=== PATIENT | female | born 1970 | race African-American/Black ===

== ENCOUNTER → 2025-04-14 10:29 | Outpatient (REF) | payer OTHER, SELFPAY ==
[2025-04-15 15:06] LABS: Mumps Virus IgG Positive; Varicella Zoster IgG (VZV) Positive
== END ==
LOC: OHS 10:29
PROVIDERS: ATTENDING PHYSICIAN Nurse Practitioner Family
DX: Z23 Encounter for immunization (principal)
CPT/HCPCS: 36415; 86480; 86706; 86735; 86762; 86765; 86787

== ENCOUNTER → 2025-08-20 15:04 | Outpatient (REF) | payer OTHER, SELFPAY ==
[2025-08-20 16:24] LABS: HCG, Serum Qualitative Screen Negative
[2025-08-20 16:25] LABS: Hematocrit 40.9 % (37.0-47.0); Hemoglobin 13.0 g/dL (12.0-16.0); Mean Corp Hgb Conc. 31.8 g/dL (33.0-37.0); Mean Corpuscular Volume 70.5 fL (81.0-99.0); Platelet Count 269 10^3/uL (130-400); Red Cell Dist. Width 17.3 % (11.5-14.5)
[2025-08-20 16:29] LABS: ALT (SGPT) 19 U/L (0-35); AST (SGOT) 23 U/L (14-36); Albumin 4.1 g/dl (3.5-5.0); Alkaline Phosphatase 108 U/L (38-126); Blood Urea Nitrogen 11 mg/dl (7-17); Calcium 9.3 mg/dl (8.4-10.2); Carbon Dioxide 30 mmol/L (22-30); Chloride 102 mmol/L (98-107); Glucose 90 mg/dl (70-99); Potassium 4.3 mmol/L (3.5-5.1); Sodium 135 mmol/L (135-145); Total Protein 7.2 g/dl (6.3-8.2); eGFR > 60.00
[2025-08-20 16:57] LABS: Hepatitis B Surface Antigen Negative (Negative)
[2025-08-20 17:14] LABS: Hepatitis C Antibody Negative (Negative)
== END ==
LOC: REG 15:04
PROVIDERS: ATTENDING PHYSICIAN Nurse Practitioner Family
DX: Z57.8 Occupational exposure to other risk factors (principal)
CPT/HCPCS: 36415; 80053; 82248; 84100; 84703; 85027; 86706; 86803; 87340; 87389

== ENCOUNTER → 2025-09-08 10:14 | Outpatient (REF) | payer BC, SELFPAY ==
[2025-09-08 11:07] LABS: Hematocrit 41.5 % (37.0-47.0); Hemoglobin 12.8 g/dL (12.0-16.0); Mean Corp Hgb Conc. 30.8 g/dL (33.0-37.0); Mean Corpuscular Volume 70.9 fL (81.0-99.0); Nucleated Red Blood Cells % 0 %; Platelet Count 257 10^3/uL (130-400); Red Cell Dist. Width 17.9 % (11.5-14.5)
[2025-09-08 11:30] LABS: ALT (SGPT) 32 U/L (0-35); AST (SGOT) 35 U/L (14-36); Albumin 4.0 g/dl (3.5-5.0); Alkaline Phosphatase 94 U/L (38-126); Blood Urea Nitrogen 12 mg/dl (7-17); Calcium 9.2 mg/dl (8.4-10.2); Carbon Dioxide 28 mmol/L (22-30); Chloride 101 mmol/L (98-107); Glucose 93 mg/dl (70-99); HDL Cholesterol 48 mg/dl; LDL Cholesterol, Calculated 120 mg/dl; Potassium 4.8 mmol/L (3.5-5.1); Sodium 135 mmol/L (135-145); Total Protein 7.1 g/dl (6.3-8.2); Very Low Density Lipoprotein 21 mg/dl (0-30); eGFR > 60.00
[2025-09-08 11:43] LABS: Vitamin D, 25-OH*** 31.6 ng/mL (30-80)
[2025-09-08 12:01] LABS: Ferritin 22.1 ng/ml (11.1-264.0)
== END ==
LOC: REG 10:14
PROVIDERS: ATTENDING PHYSICIAN Internal Medicine
DX: E78.2 Mixed hyperlipidemia (principal); D50.0 Iron deficiency anemia secondary to blood loss (chronic); E55.9 Vitamin D deficiency, unspecified; E61.1 Iron deficiency
CPT/HCPCS: 36415; 80053; 80061; 82306; 82728; 85025

== ENCOUNTER → 2025-09-11 10:16 | Outpatient (REF) | payer BC, SELFPAY | LOC: WDC 10:16 | PROVIDERS: ATTENDING PHYSICIAN Internal Medicine | DX: Z12.31 Encounter for screening mammogram for malignant neoplasm of breast (principal) | CPT/HCPCS: 77063; 77067 ==

== ENCOUNTER → 2025-09-15 02:00 | Outpatient (REF) | payer BC, SELFPAY | LOC: REG 02:00 | PROVIDERS: ATTENDING PHYSICIAN Internal Medicine | DX: D50.0 Iron deficiency anemia secondary to blood loss (chronic) (principal); E61.1 Iron deficiency | CPT/HCPCS: 83520 ==